=== PATIENT | male | born 1950 | race Caucasian/White ===

== ENCOUNTER → 2017-02-05 | Outpatient (REF) | payer MEDICARE ==
[2017-02-05 18:41] LABS: BASO % 0.5 % (0.0-1.0); EOS # 0.3 10^3/uL (0.0-0.50); EOS % 5.6 % (0.0-3.0); IMMATURE GRANULOCYTE % 1.7 % (0-0); LYMPH # 1.3 10^3/uL (1.5-4.5); LYMPH % 20.7 % (24.0-44.0); MEAN CORPUSCULAR HEMOGLOBIN 31.7 pg (27.0-33.0); MEAN CORPUSCULAR HGB CONC 31.7 g/dl (32.0-36.5); NEUTROPHILS # 3.3 10^3/uL (1.8-7.7); NEUTROPHILS % 54.5 % (36.0-66.0); RED CELL DISTRIBUTION WIDTH 12.7 % (11.5-14.5); WHITE BLOOD COUNT 6.1 10^3/uL (4.0-10.0)
[2017-02-05 19:04] LABS: ANION GAP 4 MEQ/L (8-16); BLOOD UREA NITROGEN 20 MG/DL (7-18); CALCIUM LEVEL 9.3 MG/DL (8.8-10.2); CARBON DIOXIDE LEVEL 30 MEQ/L (21-32); CHLORIDE LEVEL 109 MEQ/L (98-107); GLOMERULAR FILTRATION RATE > 60.0 (>49); GLUCOSE, FASTING 79 MG/DL (80-110); POTASSIUM SERUM 4.8 MEQ/L (3.5-5.1); SODIUM LEVEL 143 MEQ/L (136-145)
== END ==
LOC: M LAB REF 17:32
PROVIDERS: ATTEND Family Medicine
DX: R19.7 Diarrhea, unspecified (principal)

== ENCOUNTER → 2019-02-04 | Outpatient (REF) | payer MEDICARE | LOC: M LAB REF 15:05 | PROVIDERS: ATTEND Otolaryngology | DX: D23.30 Other benign neoplasm of skin of unspecified part of face (principal) ==

== ENCOUNTER → 2019-03-26 | Outpatient (CLI) | payer MEDICARE ==
[~2019-03-26] MED LIST: ISOVUE-370 76% 100ML VIAL (Q9967) As Ordered ONE
--- NOTE | 2019-03-26 15:33 | REP ---
CT neck: 03/26/2019. Indication: Neck swelling. Comparison: 12/17/2010. Technique: Axial CT images of the neck soft tissues were obtained following 75 ml IV administration of Isovue 370. Findings: The previously described lymphadenopathy has significantly improved with right greater than left level IV lymphadenopathy now present with the largest lymph node measuring 1.6 cm in long axis diameter. There are non specific ground-glass opacities as well as prominent perihilar markings within the visualized lungs. Dedicated chest CT is recommended. Carotid atherosclerotic disease is present without high-grade stenosis detected by this technique. No significant ocular, intraorbital or acute intracranial abnormalities are present. Left at the temporal and right parietal areas of encephalomalacia are noted. The airway is patent. Impression: Decreased lymphadenopathy compared to the most recent study as described. Electronically Signed by Ronnie Jade DO 03/26/2019 03:25 P
== END ==
LOC: M RAD 13:05
PROVIDERS: ATTEND Otolaryngology
DX: R22.1 Localized swelling, mass and lump, neck (principal)
CPT/HCPCS: 70491; Q9967